=== PATIENT | female | born 1995 | race Caucasian/White ===

== ENCOUNTER 2016-12-16 19:26 | Outpatient (CLI) | payer OTHER ==
[~2016-12-16] VITALS: Ht 162.6 cm; Wt 71.5 kg
[2016-12-16 19:47] VITALS: BP 115/62
[2016-12-17] MEDS ORDERED: fentaNYL INJECTION 100 MCG/2 ML AMP ONE (07:15)
--- NOTE | 2016-12-18 14:03 | Physician Query-Final Dx ---
JUWAN RUANO 12/18/16 1403: Clinic Account Progress/Dx Physician Query: Please give diagnosis Date of Service Dec 16, 2016 at 19:26 MARLEY PIERRE MD 12/19/16 0700: Clinic Account Progress/Dx DIAGNOSIS: Diagnosis 38 week gestation Leaking fluid, negative testing for rupture of membranes JUWAN RUANO Dec 18, 2016 14:03 MARLEY PIERRE MD Dec 19, 2016 07:00
== END 2016-12-16 21:25 | disposition home or self-care (01) ==
LOC: WSo 19:26 → LDRP 19:27 → WSo 21:25
PROVIDERS: ATTEND Family Medicine
DX: O99.89 Other specified diseases and conditions complicating pregnancy, childbirth and the puerperium (principal); N89.8 Other specified noninflammatory disorders of vagina; Z3A.38 38 weeks gestation of pregnancy
CPT/HCPCS: 99214

== ENCOUNTER 2016-12-17 05:15 | Inpatient (IN) | payer OTHER ==
[2016-12-17] VITALS (43 sets, daily range): BP systolic 90–127; BP diastolic 48–70
[~2016-12-17] VITALS: Ht 162.6 cm; Wt 71.5 kg
[2016-12-17] MEDS ORDERED: D5 LR IV SOLUTION 1,000 ML IV ONE (05:34)
[2016-12-17] MEDS ORDERED: AMPICILLIN INJECTION 2,000 MG in NS (IVPB) 50 ML IV SCH (05:41)
[2016-12-17] MEDS ORDERED: D5 LR IV SOLUTION 1,000 ML IV SCH (05:41)
[2016-12-17] MEDS ORDERED: MINERAL OIL CONCENTRATE 99.9% 15 ML UDC TOP PRN (05:45)
[2016-12-17] MEDS ORDERED: AMPICILLIN 2000 MG INJECTION (IM/IV) ONE (05:46)
[2016-12-17] MEDS ORDERED: NS (IVPB) 50 ML ONE (05:47)
[2016-12-17] MEDS ORDERED: CATHETER FLUSH 10 ML SYR IV SCH ×2 (06:00→14:00)
[2016-12-17 06:01] LABS: BASOPHILS % (AUTO) 0 % (0-10); EOSINOPHILS # (AUTO) 0.2 10^3/uL (0.0-0.3); EOSINOPHILS % (AUTO) 2 % (0-10); LYMPHOCYTES # (AUTO) 1.7 X 10^3 (1.0-4.0); LYMPHOCYTES % (AUTO) 18 % (12-44); MEAN CORPUSCULAR HEMOGLOBIN 22 PG (25-34); MEAN CORPUSCULAR HGB CONC 30 G/DL (32-36); MEAN CORPUSCULAR VOLUME 72 FL (80-99); MEAN PLATELET VOLUME 10.2 FL (7.4-10.4); MONOCYTES # (AUTO) 0.8 X 10^3 (0.0-1.0); MONOCYTES % (AUTO) 8 % (0-12); NEUTROPHILS # (AUTO) 6.9 X 10^3 (1.8-7.8); NEUTROPHILS % (AUTO) 72 % (42-75); PLATELET COUNT 223 10^3/uL (130-400); RED BLOOD COUNT 4.41 10^6/uL (4.35-5.85); RED CELL DISTRIBUTION WIDTH 17.2 % (10.0-14.5); WHITE BLOOD COUNT 9.6 10^3/uL (4.3-11.0)
[2016-12-17] MEDS ORDERED: SUFENTA 0.6MCG/ML BUPIVA 0.125 100 ML ONE (06:20)
--- NOTE | 2016-12-17 09:11 | History & Physical-OB ---
OB - Chief Complaint & HPI Date/Time Date of Admission: Date of Admission: Dec 17, 2016 at 5:36 am Time Seen by Provider: 09:05 Chief Complaint/History OB-Reason for Admission/Chief: Onset of Labor Hx : 2 Hx Para: 1 Expected Date of Delivery: Dec 28, 2016 Gestational Age in Weeks: 38 Gestational Age in Days: 3 Other reason for admission: Started having contractions afternoon that were mild, increased in frequency and intensity until overnight last night becoming unbearable. She has had continuous small amount of fluid leaking since which has increased in volume, no gushes. Last night first visit had clearly palpable bag and equivocal nitrazine testing and no cervical change management consultant an hour. On return due to increasingly painful contractions, nitrazine more convincingly positive and bag less noticeable although not clearly ruptured. History of Labs Received care in another city, records not yet received, GBS pending. Allergies and Home Medications Allergies Coded Allergies: No Known Drug Allergies (Unverified , 12/17/16) Home Medications No Active Prescriptions or Reported Meds OB - History Hx of Present Care: Yes Obstetrical Complications: None Medical Complications: None Obstetrical History Hx : 2 Hx Para: 1 Hx Total # of Abortions (Spona: 0 Hx Multiple Gestation: No Hx Ectopic : No Hx Stillbirth: No Hx Complication: No Hx Induced Hypertens: No Hx Maternal Gestational Diabet: No Hx Hemorrhage: No Delivery History Hx Dystocia: No Hx Forceps Assisted Delivery: No Hx Vacuum Extraction Assisted: No Hx Placenta Abnormality: No Hx Distress: No Hx Large For Gestational Age I: No Hx Small for Gestational Age I: No Hx Section: No Hx Vaginal Delivery Post C-Sec: No Hx Blood Disorders: No Adverse Rxn to Tranfusion: No Patient Past Medical History PMHx: Denies Social History/Family History HIV/AIDS: No Recent Infectious Disease Expo: No Sexually Transmitted Disease: No Alcohol Use: Denies Use Recreational Drug Use: No Smoking Cessation: Never smoker Immunizations Rubella: unknown RPR/VDRL: Unknown GBS Status: Unknown HBsAG: Unknown OB - Admission Exam Physical Exam Date Seen by Provider: Dec 17, 2016 Time Seen by Provider: 09:08 Vitals: Vital Signs 12/17/16 12/17/16 07:05 08:30 Temp 98.1 Pulse 81 Resp 18 B/P (MAP) 92/54 Pulse Ox 100 O2 Delivery Non Rebreather O2 Flow Rate 15.00 Abdomen: Gravid Extremities: Normal Cervical Dilatation: 8cm Effacement: 100% Station: 0 Membranes: Intact Heart Rate: 130's Accelerations: No Accelerations Decelerations: Early Decelerations Short Term Variability: Present Halfway Variability: Minimal (3-5) Contractions on Admission: < 5 Minutes Apart Intensity: Firm Labs Laboratory Tests Test 12/17/16 05:45 Range/Units White Blood Count 9.6 4.3-11.0 10^3/uL Red Blood Count 4.41 4.35-5.85 10^6/uL Hemoglobin 9.5 L 11.5-16.0 G/DL Hematocrit 32 L 35-52 % Mean Corpuscular Volume 72 L 80-99 FL Mean Corpuscular Hemoglobin 22 L 25-34 PG Mean Corpuscular Hemoglobin Concent 30 L 32-36 G/DL Red Cell Distribution Width 17.2 H 10.0-14.5 % Platelet Count 223 130-400 10^3/uL Mean Platelet Volume 10.2 7.4-10.4 FL Neutrophils (%) (Auto) 72 42-75 % Lymphocytes (%) (Auto) 18 12-44 % Monocytes (%) (Auto) 8 0-12 % Eosinophils (%) (Auto) 2 0-10 % Basophils (%) (Auto) 0 0-10 % Neutrophils # (Auto) 6.9 1.8-7.8 X 10^3 Lymphocytes # (Auto) 1.7 1.0-4.0 X 10^3 Monocytes # (Auto) 0.8 0.0-1.0 X 10^3 Eosinophils # (Auto) 0.2 0.0-0.3 10^3/uL Basophils # (Auto) 0.0 0.0-0.1 10^3/uL OB - Assessment/Plan/Diagnosis Assessment Assessment: active labor, rupture of membranes (possible prolonged rupture, will treat with ampicillin due to GBS unknown and possible prolonged rupture), other (GBS unknown, Hep B status unknown, HIV status unknown) Plan Plan: Expectant Management Other Plan Will obtain routine labs as records have not yet been received. Copy Copies To 1: MARLEY PIERRE MD, BETHANY N MD Dec 17, 2016 9:11 am
[2016-12-17] MEDS ORDERED: AMPICILLIN INJECTION 1,000 MG in NS (IVPB) 50 ML IV SCH (09:45)
[2016-12-17] MEDS ORDERED: OXYTOCIN/NORMAL SALINE 500 ML IV ONE (09:46)
[2016-12-17] MEDS ORDERED: LIDOCAINE/EPI 1%-1:200,000 (XYLOCAINE) 30 ML VIAL ONE (11:29)
--- NOTE | 2016-12-17 12:37 | OB Labor & Delivery Record ---
Vag Delivery Note Vag Delivery Note Date of Delivery: 12/17/16 Preoperative Diagnosis: Dalila Fontana is a 21 /Para 2 / 1, Gestational Age (wks)38with 3 days Postoperative Diagnosis: Same Surgeon: MARLEY PIERRE Supervisor [employer] Shop: Elen Zarate, MS3 Anesthesia: Epidural Delivery Type: Spontaneous vaginal delivery Findings: Viable female infant, apgars 6/8/9, weight 8#7 Lacerations: left periurethral Intact placenta with 3 vessel cord. No nuchal cord, body cord or shoulder dystocia Estimated Blood Loss: 250 ml Complications: bradycardia immediately prior to delivery, heart rate between 60-80 while infant for 4.5 minutes Condition: Stable Description of Procedure: The patient is a G2 now P2 who presented in active labor. She was admitted and informed consent was obtained. Her labor course was remarkable for bradycardia as noted above. Early decels with contractions at complete dilation. She progressed to complete dilatation and began to push. She was then set up for delivery. The infant's head was delivered atraumatically in the left occiput anterior position. The shoulders and remainder of the infant's body were then delivered without difficulty. Upon delivery, the was placed on maternal abdomen. The gasped and had weak cry, so the cord was doubly clamped and cut and the infant was handed off to the pediatric staff. An intact placenta with 3-vessel cord delivered via Anshul and there was found to be minimal bleeding.~ Vigorous fundal massage was performed and the fundus was found to be firm. IV oxytocin was given. Examination of the vagina and perineum revealed a left periurethral laceration repaired with 2 single interrupted 3-0 rapide. Following the repair, sponge, instrument and needle counts were correct. Mom and baby were both in stable condition in the labor suite. Vitals - Labs Vital Signs - I&O Vital Signs Date Time Temp Pulse Resp B/P (MAP) Pulse Ox O2 Delivery O2 Flow Rate FiO2 12/17/16 10:05 73 18 101/55 100 Non Rebreather 15.00 12/17/16 09:50 93 18 108/54 100 Non Rebreather 15.00 12/17/16 09:35 65 18 96/50 100 Non Rebreather 15.00 12/17/16 09:20 68 18 101/54 99 Non Rebreather 15.00 12/17/16 09:05 63 18 95/52 100 Non Rebreather 15.00 12/17/16 08:50 65 18 98/53 100 Non Rebreather 15.00 12/17/16 08:30 81 18 92/54 100 Non Rebreather 15.00 12/17/16 08:25 77 18 100 Non Rebreather 15.00 12/17/16 08:20 78 18 97/55 100 Non Rebreather 15.00 12/17/16 08:15 71 18 99/52 100 Non Rebreather 15.00 12/17/16 08:10 89 18 97/56 100 Non Rebreather 15.00 12/17/16 08:05 82 18 96/49 100 Non Rebreather 15.00 12/17/16 08:00 70 18 94/52 100 Non Rebreather 15.00 12/17/16 07:55 84 18 94/48 100 Non Rebreather 15.00 12/17/16 07:50 84 18 94/48 100 Non Rebreather 15.00 12/17/16 07:45 85 18 98 Room Air 12/17/16 07:40 81 18 98/50 99 Room Air 12/17/16 07:35 77 18 98/55 98 Room Air 12/17/16 07:30 77 18 102/54 98 Room Air 12/17/16 07:25 74 18 95/55 98 Room Air 12/17/16 07:20 88 18 90/51 99 Room Air 12/17/16 07:15 93 18 99/53 100 Room Air 12/17/16 07:10 88 18 113/56 99 Room Air 12/17/16 07:08 90 18 127/66 100 Room Air 12/17/16 07:05 98.1 85 18 111/56 100 Room Air 12/17/16 05:31 97.6 90 18 117/63 Room Air I & O 12/17/16 07:00 Intake Total 1000 ml Balance 1000 ml Labs Laboratory Tests 12/17/16 05:45: White Blood Count 9.6, Red Blood Count 4.41, Hemoglobin 9.5L, Hematocrit 32L, Mean Corpuscular Volume 72L, Mean Corpuscular Hemoglobin 22L, Mean Corpuscular Hemoglobin Concent 30L, Red Cell Distribution Width 17.2H, Platelet Count 223, Mean Platelet Volume 10.2, Neutrophils (%) (Auto) 72, Lymphocytes (%) (Auto) 18 , Monocytes (%) (Auto) 8, Eosinophils (%) (Auto) 2, Basophils (%) (Auto) 0, Neutrophils # (Auto) 6.9, Lymphocytes # (Auto) 1.7, Monocytes # (Auto) 0.8, Eosinophils # (Auto) 0.2, Basophils # (Auto) 0.0 12/17/16 09:37: MARLEY PIERRE MD Dec 17, 2016 12:37 pm
[2016-12-17] MEDS ORDERED: OXYTOCIN/NORMAL SALINE 500 ML IV SCH (13:58)
[2016-12-17] MEDS ORDERED: TETANUS,DIPTH,PERTUSS P/F (BOOSTRIX) 0.5 ML VIAL IM ONE (14:00)
[2016-12-17] MEDS ORDERED: WITCH HAZEL(TUCKS) 40 EA JAR TOP PRN (14:00)
[2016-12-17] MEDS ORDERED: MEASLES,MUMPS,RUBELLA 1 EA INJ SQ ONE (14:00)
[2016-12-17] MEDS ORDERED: BENZOCAINE/MENTHOL (DERMOPLAST) 56 ML CAN TP PRN (14:00)
[2016-12-17] MEDS: IBUPROFEN 600 MG (MOTRIN) TAB PO SCH ×2 (14:03→20:33)
[2016-12-18] MEDS: IBUPROFEN 600 MG (MOTRIN) TAB PO SCH ×4 (01:57→19:47)
[2016-12-18] MEDS ORDERED: DOCUSATE SODIUM 100 MG (COLACE) CAP PO ONE (04:38)
[2016-12-18] MEDS: DOCUSATE SODIUM 100 MG (COLACE) CAP PO SCH ×2 (04:44→19:47)
[2016-12-18 06:23] LABS: BASOPHILS % (AUTO) 0 % (0-10); EOSINOPHILS # (AUTO) 0.1 10^3/uL (0.0-0.3); EOSINOPHILS % (AUTO) 1 % (0-10); LYMPHOCYTES # (AUTO) 1.6 X 10^3 (1.0-4.0); LYMPHOCYTES % (AUTO) 16 % (12-44); MEAN CORPUSCULAR HEMOGLOBIN 22 PG (25-34); MEAN CORPUSCULAR HGB CONC 30 G/DL (32-36); MEAN CORPUSCULAR VOLUME 73 FL (80-99); MEAN PLATELET VOLUME 9.6 FL (7.4-10.4); MONOCYTES # (AUTO) 0.7 X 10^3 (0.0-1.0); MONOCYTES % (AUTO) 7 % (0-12); NEUTROPHILS # (AUTO) 7.9 X 10^3 (1.8-7.8); NEUTROPHILS % (AUTO) 76 % (42-75); PLATELET COUNT 169 10^3/uL (130-400); RED BLOOD COUNT 3.62 10^6/uL (4.35-5.85); WHITE BLOOD COUNT 10.4 10^3/uL (4.3-11.0)
--- NOTE | 2016-12-18 07:49 | Anesthesia-Regional Post-Op ---
Regional Patient Condition Mental Status: Alert, Oriented x3 Circulation: Same as Pre-Op Headache: Absent Sensation: Full Recovery Motor Block: Absent Post Op Complications Complications None Follow Up Care/Instructions Patient Instructions None needed. Anesthesia/Patient Condition Patient is doing well, C/O minimal sore back (which is expected), stable vital signs, no apparent adverse anesthesia problems. MUSA ORTA DO Dec 18, 2016 07:49
[2016-12-18] MEDS: PRENATAL VITAMIN 1 EA TAB PO SCH (07:53)
[2016-12-18] MEDS: FERROUS SULF 325 MG (IRON) TAB PO SCH (07:53)
[2016-12-18 08:00] VITALS: BP 91/49
--- NOTE | 2016-12-18 09:58 | Progress Note (SOAP) ---
Subjective Subjective/Events-last exam No concerns today. Bleeding less then normal period, no clots. Pain well controlled. Tolerating PO diet and ambulation Review of Systems Date Seen by Provider: Dec 18, 2016 Time Seen by Provider: 09:47 Objective Exam Last Set of Vital Signs Vital Signs Date Time Temp Pulse Resp B/P (MAP) Pulse Ox O2 Delivery O2 Flow Rate FiO2 12/18/16 08:00 97.1 92 18 91/49 100 Room Air 12/17/16 11:35 15.00 Capillary Refill : I&O Bad tableGeneral: Alert, Oriented X3, No Acute Distress Lungs: Clear to Auscultation, Normal Air Movement Heart: Regular Rate, No Murmurs Abdomen: Soft, No Tenderness, Other (Fundus firm below umbilicus) Extremities: No Edema, No Tenderness/Swelling Psych/Mental Status: Mental Status NL, Mood NL Results/Procedures Lab Laboratory Tests 12/18/16 06:04: White Blood Count 10.4, Red Blood Count 3.62L, Hemoglobin 7.9L, Hematocrit 27L, Mean Corpuscular Volume 73L, Mean Corpuscular Hemoglobin 22L, Mean Corpuscular Hemoglobin Concent 30L, Red Cell Distribution Width 17.0H, Platelet Count 169, Mean Platelet Volume 9.6, Neutrophils (%) (Auto) 76H, Lymphocytes (%) (Auto) 16 , Monocytes (%) (Auto) 7, Eosinophils (%) (Auto) 1, Basophils (%) (Auto) 0, Neutrophils # (Auto) 7.9H, Lymphocytes # (Auto) 1.6, Monocytes # (Auto) 0.7, Eosinophils # (Auto) 0.1, Basophils # (Auto) 0.0 Assessment/Plan Assessment/Plan Plan 21 yo G2 now P2 del term female infant via @ 38.3 wga, PPD #1 Plan - Continue routine care - Acute blood loss anemia after delivery: PNV and daily Iron supplement - Pain well controlled on PO meds - Plan to d/c tomorrow Diagnosis/Problems: Clinical Quality Measures DVT/VTE Risk/Contraindication: Risk Factor Score Per Nursin RFS Level Per Nursing on Admit: 1=Low/No VTE PPX NAT SHAH MD Dec 18, 2016 09:58
[2016-12-18 12:00] VITALS: BP 102/58
[2016-12-18 13:59] LABS: HIV AG AB SCREEN Non-Reactive (Non-Reactive)
[2016-12-18 15:52] LABS: SYPHILIS SCREEN PT Non-Reactive
[2016-12-18 16:07] LABS: RUBELLA ANTIBOD 0.99 H INDEX (0.00-0.89)
[2016-12-18 16:09] LABS: RUBELLA ANTIBODY INTERP Equivocal * (NEGATIVE)
[2016-12-18 16:15] VITALS: BP 98/61
[2016-12-18 20:00] VITALS: BP 105/64
[2016-12-19 02:45] VITALS: BP 99/58
[2016-12-19] MEDS: IBUPROFEN 600 MG (MOTRIN) TAB PO SCH ×2 (02:48→09:13)
[2016-12-19] MEDS ORDERED: PNV1TABL67 PO ×2 (06:53)
[2016-12-19] MEDS ORDERED: FERR-74 PO ×2 (06:53)
[2016-12-19] MEDS ORDERED: IBUP-1773 PO ×2 (06:53)
[2016-12-19 08:45] VITALS: BP 100/59
[2016-12-19] MEDS: DOCUSATE SODIUM 100 MG (COLACE) CAP PO SCH (09:13)
[2016-12-19] MEDS: FERROUS SULF 325 MG (IRON) TAB PO SCH (09:13)
[2016-12-19] MEDS: PRENATAL VITAMIN 1 EA TAB PO SCH (09:13)
--- NOTE | 2016-12-19 09:18 | Discharge Summary ---
Diagnosis/Chief Complaint Date of Admission Dec 17, 2016 at 5:36 am Date of Discharge Discharge Summary-Simple/Stand Discharge Physical Examination Allergies: Coded Allergies: No Known Drug Allergies (Unverified , 12/17/16) Vitals & I&Os Vital Sign - Last 12Hours Date Time Temp Pulse Resp B/P (MAP) Pulse Ox O2 Delivery O2 Flow Rate FiO2 12/19/16 02:45 98.2 89 18 99/58 98 Room Air 12/17/16 11:35 15.00 Hospital Course See final discharge diagnosis. Discharge Instructions to patient/family Please see electonic discharge instructions given to patient. Discharge Medications Reviewed and agree with Discharge Medication list on patient's Discharge Instruction sheet Clinical Quality Measures DVT/VTE Risk/Contraindication: Risk Factor Score Per Nursin RFS Level Per Nursing on Admit: 1=Low/No VTE PPX MARLEY PIERRE MD Dec 19, 2016 9:18 am
[2016-12-19 13:00] VITALS: BP 101/59
[2016-12-19 14:55] VITALS: BP 101/59
== END 2016-12-19 14:55 | disposition home or self-care (01) | DRG 775 ==
LOC: WSo 05:15 → LDRP 05:15 → WSo 05:36 → LDRP 05:36
PROVIDERS: ADMIT Family Medicine; ATTEND Family Medicine
PROC: 0HQ9XZZ Repair Perineum Skin, External Approach (ICD-10-PCS; principal; 2016-12-17)
PROC: 10E0XZZ Delivery of Products of Conception, External Approach (ICD-10-PCS; 2016-12-17)
DX: O71.82 Other specified trauma to perineum and vulva (principal); Z3A.38 38 weeks gestation of pregnancy; Z37.0 Single live birth; O90.81 Anemia of the puerperium; D62 Acute posthemorrhagic anemia
CPT/HCPCS: 36415; 85025; 86703; 86762; 86780; 86850; 86900; 86901; 87340; 99212

== ENCOUNTER 2020-02-18 09:09 | Day surgery (SDC) | payer MEDICAID ==
[~2020-02-18] VITALS: Ht 162 cm; Wt 77.0 kg
[2020-02-18] VITALS (9 sets, daily range): BP systolic 103–123; BP diastolic 66–77
[~2020-02-18 09:09] MED LIST: FERR325T18 PO; IBUP-1773 PO; PNV1TABL67 PO
[2020-02-18 11:17] LABS: BASOPHILS % (AUTO) 0 % (0-10); EOSINOPHILS % (AUTO) 0 % (0-10); HEMATOCRIT 41 % (35-52); HEMOGLOBIN 14.3 G/DL (11.5-16.0); LYMPHOCYTES # (AUTO) 1.2 X 10^3 (1.0-4.0); LYMPHOCYTES % (AUTO) 8 % (12-44); MEAN CORPUSCULAR HEMOGLOBIN 30 PG (25-34); MEAN CORPUSCULAR HGB CONC 35 G/DL (32-36); MEAN CORPUSCULAR VOLUME 86 FL (80-99); MEAN PLATELET VOLUME 10.4 FL (7.4-10.4); MONOCYTES % (AUTO) 6 % (0-12); NEUTROPHILS # (AUTO) 12.9 X 10^3 (1.8-7.8); NEUTROPHILS % (AUTO) 86 % (42-75); PLATELET COUNT 263 10^3/uL (130-400)
[2020-02-18 11:27] LABS: ALANINE AMINOTRANSFERASE 19 U/L (0-55); ALBUMIN 4.5 GM/DL (3.2-4.5); ALKALINE PHOSPHATASE 56 U/L (40-136); AMYLASE 67 U/L (25-125); BILIRUBIN,TOTAL 0.6 MG/DL (0.1-1.0); BUN/CREATININE RATIO 13; CALCIUM 9.2 MG/DL (8.5-10.1); CARBON DIOXIDE 21 MMOL/L (21-32); CHLORIDE 103 MMOL/L (98-107); CREATININE SERUM 0.68 MG/DL (0.60-1.30); GFR ESTIMATED > 60; GLUCOSE 121 MG/DL (70-105); LIPASE 15 U/L (8-78); POTASSIUM 3.4 MMOL/L (3.6-5.0); SODIUM 137 MMOL/L (135-145); TOTAL PROTEIN 7.7 GM/DL (6.4-8.2)
[2020-02-18 11:43] LABS: BILIRUBIN,URINE NEGATIVE (NEGATIVE); CLARITY,URINE CLEAR; COLOR,URINE YELLOW; GLUCOSE, URINE (UA) NEGATIVE (NEGATIVE); KETONES,URINE 2+ (NEGATIVE); LEUKOCYTE ESTERASE ,URINE NEGATIVE (NEGATIVE); NITRITE,URINE NEGATIVE (NEGATIVE); PROTEIN,URINE NEGATIVE (NEGATIVE)
[2020-02-18 11:49] LABS: WBC,URINE 0-2 /HPF
[2020-02-18 11:50] LABS: BACTERIA,URINE TRACE /HPF
--- NOTE | 2020-02-18 12:04 | ED Abdominal Pain ---
General Chief Complaint: Abdominal/GI Problems Stated Complaint: ABD CRAMPING Nursing Triage Note: pt presents to ed with complaints of abdominal pain starting yesterday with n/v. Sepsis Screen: No Definite Risk Source of Information: Patient Exam Limitations: No Limitations History of Present Illness Date Seen by Provider: Feb 18, 2020 Time Seen by Provider: 11:05 Initial Comments 24-year-old female who presents to emergency room with complaints of abdominal pain, nausea, vomiting that started yesterday. She denies any fevers or diarrhea. He reports the pain is in her right lower quadrant area. She believed that she was going to start her menstrual cycle a week early but no menses came with the pain. Timing/Duration: 1-2 Days Associated Symptoms: Nausea/Vomiting Allergies and Home Medications Allergies Coded Allergies: No Known Drug Allergies (Unverified , 12/17/16) Home Medications Ferrous Sulfate 325 Mg Tablet, 325 MG PO DAILY@0800 Prescribed by: MARLEY PIERRE on 12/19/16 0653 Ibuprofen 600 Mg Tablet, 600 MG PO Q6H PRN for PAIN-MILD TO MODERATE Prescribed by: MARLEY PIERRE on 12/19/16 0653 Pnv with Ca,No.72/Iron/FA 1 Each Tablet, 1 EA PO DAILY@0700 Prescribed by: MARLEY PIERRE on 12/19/16 0653 Patient Home Medication List Home Medication List Reviewed: Yes Review of Systems Review of Systems Constitutional: see HPI; No chills, No fever Gastrointestinal: See HPI, Abdominal Pain, Nausea, Vomiting All Other Systems Reviewed Negative Unless Noted: Yes Past [id number]-[id number]-Mxombj Hx Past Med/Social Hx: Reviewed Nursing Past Med/Soc Hx Patient Social History Alcohol Use: Rarely Uses Recreational Drug Use: No Smoking Status: Former Smoker Type Used: Cigarettes Former Smoker, Quit: October 21, 2019 Recent Foreign Travel: No Contact w/Someone Who Travel: No Recent Infectious Disease Expo: No Recent Hopitalizations: No Immunizations Up To Date Tetanus Booster (TDap): Unknown Seasonal Allergies Seasonal Allergies: No Past Medical History Surgeries: Yes Tubal Ligation Respiratory: No Cardiac: No Neurological: No Sexually Transmitted Disease: No HIV/AIDS: No Genitourinary: No Gastrointestinal: No Musculoskeletal: No Endocrine: No HEENT: No Cancer: No Psychosocial: No Integumentary: No Blood Disorders: No Adverse Reaction/Blood Tranf: No Family Medical History Reviewed Nursing Family Hx Patient reports no known family medical history. Physical Exam Vital Signs Vital Signs - First Documented 02/18/20 09:28 Temp 36.6 Pulse 83 Resp 18 B/P (MAP) 113/75 (88) Pulse Ox 99 Capillary Refill : Less Than 3 Seconds Height/Weight/BMI Height: 5'4.00" Weight: 157lbs. 10.0oz. [id number]; 29.00 BMI Method: General Appearance: WD/WN, no apparent distress Respiratory: chest non-tender, lungs clear, normal breath sounds, no respiratory distress, no accessory muscle use Cardiovascular: normal peripheral pulses, regular rate, rhythm, no edema, no gallop, no JVD, no murmur Gastrointestinal: normal bowel sounds, soft, no organomegaly, no pulsatile mass, tenderness (right lower quadrant tenderness) Extremities: normal capillary refill Neurologic/Psychiatric: alert, normal mood/affect, oriented x 3 Skin: normal color, warm/dry Progress/Results/Core Measures Results/Orders Lab Results Laboratory Tests Test 02/18/20 10:00 02/18/20 11:35 Range/Units White Blood Count 15.0 H 4.3-11.0 10^3/uL Red Blood Count 4.78 4.35-5.85 10^6/uL Hemoglobin 14.3 11.5-16.0 G/DL Hematocrit 41 35-52 % Mean Corpuscular Volume 86 80-99 FL Mean Corpuscular Hemoglobin 30 25-34 PG Mean Corpuscular Hemoglobin Concent 35 32-36 G/DL Red Cell Distribution Width 13.5 10.0-14.5 % Platelet Count 263 130-400 10^3/uL Mean Platelet Volume 10.4 7.4-10.4 FL Neutrophils (%) (Auto) 86 H 42-75 % Lymphocytes (%) (Auto) 8 L 12-44 % Monocytes (%) (Auto) 6 0-12 % Eosinophils (%) (Auto) 0 0-10 % Basophils (%) (Auto) 0 0-10 % Neutrophils # (Auto) 12.9 H 1.8-7.8 X 10^3 Lymphocytes # (Auto) 1.2 1.0-4.0 X 10^3 Monocytes # (Auto) 1.0 0.0-1.0 X 10^3 Eosinophils # (Auto) 0.0 0.0-0.3 10^3/uL Basophils # (Auto) 0.0 0.0-0.1 10^3/uL Sodium Level 137 135-145 MMOL/L Potassium Level 3.4 L 3.6-5.0 MMOL/L Chloride Level 103 98-107 MMOL/L Carbon Dioxide Level 21 21-32 MMOL/L Anion Gap 13 5-14 MMOL/L Blood Urea Nitrogen 9 7-18 MG/DL Creatinine 0.68 0.60-1.30 MG/DL Estimat Glomerular Filtration Rate > 60 BUN/Creatinine Ratio 13 Glucose Level 121 H 70-105 MG/DL Calcium Level 9.2 8.5-10.1 MG/DL Corrected Calcium 8.8 8.5-10.1 MG/DL Total Bilirubin 0.6 0.1-1.0 MG/DL Aspartate Amino Transf (AST/SGOT) 16 5-34 U/L Alanine Aminotransferase (ALT/SGPT) 19 0-55 U/L Alkaline Phosphatase 56 40-136 U/L Total Protein 7.7 6.4-8.2 GM/DL Albumin 4.5 3.2-4.5 GM/DL Amylase Level 67 25-125 U/L Lipase 15 8-78 U/L Serum Test, Qualitative NEGATIVE NEGATIVE Urine Color YELLOW Urine Clarity CLEAR Urine pH 6.0 5-9 Urine Specific [place] 1.010 L 1.016-1.022 Urine Protein NEGATIVE NEGATIVE Urine Glucose (UA) NEGATIVE NEGATIVE Urine Ketones 2+ H NEGATIVE Urine Nitrite NEGATIVE NEGATIVE Urine Bilirubin NEGATIVE NEGATIVE Urine Urobilinogen 0.2 < = 1.0 MG/DL Urine Leukocyte Esterase NEGATIVE NEGATIVE Urine RBC (Auto) NEGATIVE NEGATIVE Urine RBC NONE /HPF Urine WBC 0-2 /HPF Urine Squamous Epithelial Cells 2-5 /HPF Urine Crystals NONE /LPF Urine Bacteria TRACE /HPF Urine Casts NONE /LPF Urine Mucus NEGATIVE /LPF Urine Culture Indicated NO My Orders Orders - FRANCOIS HICKS Comprehensive Metabolic Panel (02/18/20 11:04) Lipase (02/18/20 11:04) Amylase (02/18/20 11:04) Ua Culture If Indicated (02/18/20 11:04) Hcg,Qualitative Serum (02/18/20 11:04) Ed Iv/Invasive Line Start (02/18/20 11:04) Cbc With Automated Diff (02/18/20 11:04) Manual Differential (02/18/20 10:00) Ct Abdomen/Pelvis W (02/18/20 11:53) Iohexol Injection (Omnipaque 350 Mg/Ml 1 (02/18/20 12:15) Received Contrast (Hold Metformin- Contr (02/18/20 12:15) Ns (Ivpb) (Sodium Chloride 0.9% Ivpb Bag (02/18/20 12:15) Fentanyl Injection (Sublimaze Injection (02/18/20 13:00) Ondansetron Injection (Zofran Injectio (02/18/20 13:00) Ns Iv 1000 Ml (Sodium Chloride 0.9%) (02/18/20 13:00) Medications Given in ED Current Medications Medications Dose Ordered Sig/Chase Route Start Time Stop Time Status Last Admin Dose Admin Iohexol 100 ml ONCE ONCE IV 02/18/20 12:15 02/18/20 12:16 DC 02/18/20 12:03 92 ML Sodium Chloride 100 ml ONCE ONCE IV 02/18/20 12:15 02/18/20 12:16 DC 02/18/20 12:03 80 ML Vital Signs/I&O 02/18/20 09:28 Temp 36.6 Pulse 83 Resp 18 B/P (MAP) 113/75 (88) Pulse Ox 99 Blood Pressure Mean: 88 Progress Progress Note : Time: 12:40 Progress Note I have seen and evaluated the patient. I've informed her of her laboratory and imaging studies. I did discuss the case with Dr. Reyes at this time he will be down to evaluate the patient. 1250: Dr. Reyes is here to see the patient at this time. Departure Communication (Admissions) Time/Spoke to Admitting Phy: 15:55 Dr. Reyes will be taking the patient to a wall from the ER. Impression Primary Impression: Appendicitis Disposition: 01 HOME, SELF-CARE Condition: Stable/Unchanged Admissions Decision to Admit Reason: Admit from ER (General) Decision to Admit/Date: Feb 18, 2020 Time/Decision to Admit Time: 12:58 FRANCOIS HICKS Feb 18, 2020 12:04
[2020-02-18] MEDS ORDERED: HOLD METFORMIN - RECEIVED CONTRAST 20 ML VIAL IV SCH (12:15)
[2020-02-18] MEDS ORDERED: IOHEXOL 350 MG/ML 100 ML (OMNIPAQUE 350) VIAL IV ONE (12:15)
[2020-02-18] MEDS ORDERED: NS 100 ML (IVPB) BAG IV ONE (12:15)
--- NOTE | 2020-02-18 12:23 | Diagnostic Imaging Report ---
PROCEDURE: CT abdomen and pelvis with contrast. TECHNIQUE: Multiple contiguous axial images were obtained through the abdomen and pelvis after administration of intravenous contrast. Auto Exposure Controls were utilized during the CT exam to meet ALARA standards for radiation dose reduction. INDICATION: Right flank pain with nausea, vomiting, and diarrhea. COMPARISON: No prior studies are available for comparison. FINDINGS: The lung bases are clear. The liver and gallbladder are unremarkable. No biliary ductal dilatation is seen. The pancreas and spleen are unremarkable. No adrenal mass is detected. Kidneys are without evidence of hydronephrosis. Aorta is nonaneurysmal. There is wall thickening and dilatation of the appendix in the right lower quadrant. Periappendiceal inflammatory changes are present and findings are consistent with acute appendicitis. There is a small calcific density within the appendix, suggestive of a small appendicolith. No definite bowel obstruction is seen. No fluid collection or abscess formation is seen at this time. There is no free air. Uterus and bladder are unremarkable. IMPRESSION: Findings consistent with acute appendicitis. No abscess formation or bowel obstruction is seen at this time. Dictated by: Dictated on workstation # [id number]
[2020-02-18] MEDS ORDERED: SEVOFLURANE (ULTANE) 15 ML INHAL SOLN ONE (12:59)
[2020-02-18] MEDS ORDERED: GLYCOPYRROLATE 0.2 MG/ML (ROBINUL) 2 ML VIAL ONE (12:59)
[2020-02-18] MEDS ORDERED: proPOfol 200 MG/20 ML (DIPRIVAN) VIAL IV ONE (12:59)
[2020-02-18] MEDS ORDERED: ROCURONIUM 10 MG/ML 5 ML SYRINGE IV ONE (12:59)
[2020-02-18] MEDS ORDERED: ONDANSETRON 4 MG/2 ML (SDV) Z0FRAN ONE (12:59)
[2020-02-18] MEDS ORDERED: NEOSTIGMINE 3 MG/3 ML VIAL ONE (12:59)
[2020-02-18] MEDS ORDERED: LIDOCAINE PF 2% 5 ML (XYLOCAINE) VIAL ONE (12:59)
[2020-02-18] MEDS ORDERED: fentaNYL INJECTION 100 MCG/2 ML AMP ONE (12:59)
[2020-02-18] MEDS ORDERED: fentaNYL INJECTION 100 MCG/2 ML AMP IVP ONE (13:00)
[2020-02-18] MEDS ORDERED: ONDANSETRON 4 MG/2 ML (SDV) Z0FRAN IVP ONE (13:00)
[2020-02-18] MEDS ORDERED: NS IV 1000 ML 1,000 ML IV SCH (13:00)
[2020-02-18] MEDS ORDERED: MIDAZOLAM 2 MG/2 ML (VERSED) VIAL ONE (13:00)
[2020-02-18] MEDS ORDERED: BUP/EPI 0.25% 1:200,000 (MARCAINE) 30 ML VIAL ONE (13:00)
--- NOTE | 2020-02-18 13:05 | Consultation - Surgery ---
History of Present Illness History of Present Illness Patient Consulted On(timothy/time) 02/18/20 12:59 Time Seen by Provider: 12:41 History of Present Illness Surgery asked to consult regarding appendicitis. HPI per ED: 24-year-old female who presents to emergency room with complaints of abdominal pain, nausea, vomiting that started yesterday. She denies any fevers or diarrhea. He reports the pain is in her right lower quadrant area. She believed that she was going to start her menstrual cycle a week early but no menses came with the pain. Timing/Duration: 1-2 Days Associated Symptoms: Nausea/Vomiting When I spoke to pt she described pain as 10 out of 10, no radiation. Started yesterday as cramps in the middle of the abdomen and now is more on the right s gabino. Not moving makes it better and only the pain meds help with the pain. She hasn't eaten since 02/15 because she has no appetite. She describes "lots" of vomiting with nausea and some minimal diarrhea. Allergies and Home Medications Allergies Coded Allergies: No Known Drug Allergies (Unverified , 12/17/16) Home Medications Ferrous Sulfate 325 Mg Tablet, 325 MG PO DAILY@0800 Prescribed by: MARLEY PIERRE on 12/19/16 0653 Ibuprofen 600 Mg Tablet, 600 MG PO Q6H PRN for PAIN-MILD TO MODERATE Prescribed by: MARLEY PIERRE on 12/19/16 0653 Pnv with Ca,No.72/Iron/FA 1 Each Tablet, 1 EA PO DAILY@0700 Prescribed by: MARLEY PIERRE on 12/19/16 0653 Patient Home Medication List Home Medication List Reviewed: Yes Past Zfrcozs-Iwhsyl-Xktnhy Hx Patient Social History Alcohol Use: Rarely Uses Recreational Drug Use: No Smoking Status: Former Smoker Former Smoker, Quit: October 21, 2019 Type Used: Cigarettes Recent Foreign Travel: No Contact w/Someone Who Travel: No Recent Infectious Disease Expo: No Recent Hopitalizations: No Immunizations Up To Date Tetanus Booster (TDap): Unknown Seasonal Allergies Seasonal Allergies: No Surgeries History of Surgeries: Yes Surgeries: Tubal Ligation Respiratory History of Respiratory Disorde: No Cardiovascular History of Cardiac Disorders: No Neurological History of Neurological Disord: No Reproductive System Sexually Transmitted Disease: No HIV/AIDS: No Genitourinary History of Genitourinary Disor: No Gastrointestinal History of Gastrointestinal Di: No Musculoskeletal History of Musculoskeletal Dis: No Endocrine History of Endocrine Disorders: No HEENT History of HEENT Disorders: No Cancer History of Cancer: No Psychosocial History of Psychiatric Problem: No Integumentary History of Skin or Integumenta: No Blood Transfusions History of Blood Disorders: No Adverse Reaction to a Blood Tr: No Family Medical History Significant Family History: Cancer (mother), Other Conditions/Hx (doesn't know anything about father) Family Medial History: Patient reports no known family medical history. Review of Systems-General Constitutional: malaise, weakness EENTM: No blurred vision, No double vision, No mouth pain, No mouth swelling, No epistaxis Respiratory: No cough, No dyspnea on exertion, No short of breath Cardiovascular: No chest pain, No edema, No palpitations Gastrointestinal: RLQ, abdominal pain (RUQ), diarrhea; No jaundice; nausea, vomiting Genitourinary: No dysuria, No frequency, No hematuria Musculoskeletal: No joint pain, No joint swelling, No muscle pain, No muscle stiffness Skin: No change in color, No change in hair/nails Psychiatric/Neurological: Denies Anxiety, Denies Depressed, Denies Seizure, Denies Tremors Other pt denies any hx of abnormal bleeding or bruising Physical Exam-General Problems Physical Exam Vital Signs Vital Signs - First Documented 02/18/20 09:28 Temp 36.6 Pulse 83 Resp 18 B/P (MAP) 113/75 (88) Pulse Ox 99 Capillary Refill : Less Than 3 Seconds General Appearance: WD/WN, mild distress Eyes: Bilateral Eye PERRL, Bilateral Eye EOMI HEENT: pharynx normal; No scleral icterus (R), No scleral icterus (L) Neck: full range of motion, supple Respiratory: chest non-tender, lungs clear, normal breath sounds, no respiratory distress, no accessory muscle use Cardiovascular: regular rate, rhythm, no murmur Gastrointestinal: normal bowel sounds, no organomegaly, guarding, tenderness Back: no CVA tenderness, no vertebral tenderness Extremities: non-tender, normal inspection, no pedal edema, no calf tenderness, normal capillary refill 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, no motor/sensory deficits, alert, normal mood/affect, oriented x 3 Skin: normal color, warm/dry Lymphatic: no adenopathy (neck, axilla or groin) Data Review Labs Laboratory Tests 02/18/20 10:00: White Blood Count 15.0H, Red Blood Count 4.78, Hemoglobin 14.3, Hematocrit 41, Mean Corpuscular Volume 86, Mean Corpuscular Hemoglobin 30, Mean Corpuscular Hemoglobin Concent 35, Red Cell Distribution Width 13.5, Platelet Count 263, Mean Platelet Volume 10.4, Neutrophils (%) (Auto) 86H, Lymphocytes (%) (Auto) 8L , Monocytes (%) (Auto) 6, Eosinophils (%) (Auto) 0, Basophils (%) (Auto) 0, Neutrophils # (Auto) 12.9H, Lymphocytes # (Auto) 1.2, Monocytes # (Auto) 1.0, Eosinophils # (Auto) 0.0, Basophils # (Auto) 0.0, Sodium Level 137, Potassium Level 3.4L, Chloride Level 103, Carbon Dioxide Level 21, Anion Gap 13, Blood Urea Nitrogen 9, Creatinine 0.68, Estimat Glomerular Filtration Rate > 60, BUN/Creatinine Ratio 13, Glucose Level 121H, Calcium Level 9.2, Corrected Calcium 8.8, Total Bilirubin 0.6, Aspartate Amino Transf (AST/SGOT) 16, Alanine Aminotransferase (ALT/SGPT) 19, Alkaline Phosphatase 56, Total Protein 7.7, Albumin 4.5, Amylase Level 67, Lipase 15, Serum Test, Qualitative NEGATIVE 02/18/20 11:35: Urine Color YELLOW, Urine Clarity CLEAR, Urine pH 6.0, Urine Specific [place] 1.010L, Urine Protein NEGATIVE, Urine Glucose (UA) NEGATIVE, Urine Ketones 2+H, Urine Nitrite NEGATIVE, Urine Bilirubin NEGATIVE, Urine Urobilinogen 0.2, Urine Leukocyte Esterase NEGATIVE, Urine RBC (Auto) NEGATIVE, Urine RBC NONE, Urine WBC 0-2, Urine Squamous Epithelial Cells 2-5, Urine Crystals NONE, Urine Bacteria TRACE, Urine Casts NONE, Urine Mucus NEGATIVE, Urine Culture Indicated NO Radiology Date of Exam:02/18/20 CT ABDOMEN/PELVIS W PROCEDURE: CT abdomen and pelvis with contrast. TECHNIQUE: Multiple contiguous axial images were obtained through the abdomen and pelvis after administration of intravenous contrast. Auto Exposure Controls were utilized during the CT exam to meet ALARA standards for radiation dose reduction. INDICATION: Right flank pain with nausea, vomiting, and diarrhea. COMPARISON: No prior studies are available for comparison. FINDINGS: The lung bases are clear. The liver and gallbladder are unremarkable. No biliary ductal dilatation is seen. The pancreas and spleen are unremarkable. No adrenal mass is detected. Kidneys are without evidence of hydronephrosis. Aorta is nonaneurysmal. There is wall thickening and dilatation of the appendix in the right lower quadrant. Periappendiceal inflammatory changes are present and findings are consistent with acute appendicitis. There is a small calcific density within the appendix, suggestive of a small appendicolith. No definite bowel obstruction is seen. No fluid collection or abscess formation is seen at this time. There is no free air. Uterus and bladder are unremarkable. IMPRESSION: Findings consistent with acute appendicitis. No abscess formation or bowel obstruction is seen at this time. Dictated on workstation # [id number] Dict: 02/18/20 1217 Trans: 02/18/20 1222 [id number] [id number] Interpreted by: ESE TORRES MD Electronically signed by: Assessment/Plan Assessment/Plan Assessment/Plan Acute appendicitis I reviewed the CT myself and spoke to radiologist her appendix is very inflamed and enlarged. Plan is IV fluids, IV ABX, pain meds, anti-emetics and to OR for Laparoscopic Appendectomy, possible open. I discussed the procedure with pt; risks and complications not limited to pain, bleeding, infection, scar, damage to bowel and need for further procedure. All questions answered to her satisfaction. CEDRIC DALEY DO Feb 18, 2020 13:05
[2020-02-18] MEDS ORDERED: ceFAZolin 2 GM IV Premixed 50 ML IV ONE (13:15)
[2020-02-18 13:32] LABS: BAND NEUTROPHILS 6 %; LYMPHOCYTES % (MANUAL) 10 %; MONOCYTES % (MANUAL) 3 %; NEUTROPHILS % (MANUAL) 81 %; RBC MORPH NORMAL
[2020-02-18] MEDS ORDERED: LACTATED RINGERS 1,000 ML IV PRN (13:54)
[2020-02-18] MEDS ORDERED: HYDR-4226 PO (14:31)
--- NOTE | 2020-02-18 14:31 | Progress Note-Post Operative ---
Post-Operative Progess Note Surgeon (s)/On Car Supervisor (s) Surgeon CEDRIC DALEY DO On Car Supervisor: MICHELE Osman Pre-Operative Diagnosis Acute appy Post-Operative Diagnosis same Procedure & Operative Findings Date of Procedure 02/18/20 Procedure Performed/Findings PROCEDURE: Laparoscopic appendectomy. COMPLICATIONS: None. INDICATIONS: The patient is a 24 year old female who has been having right lower quadrant abdominal pain. Patient's exam consistent with appendicitis. I discussed risk and benefits of laparoscopic appendectomy and all indicated procedures with the possibility being a normal appendix. The patient understands the risks and benefits and wishes to proceed. Consent was signed on the chart. DESCRIPTION OF PROCEDURE: The patient was taken to the operating suite, prepped and draped in a sterile fashion. Timeout was performed. Local anesthetic was infiltrated just above the umbilicus and 11-blade scalpel was used to make a skin incision. Cautery was used to dissect down to the fascia and scored. Kochers were used to grasp and elevate it and the abdomen was then entered. A 0 Vicryl was placed in a pvcwnf-vw-ajwen fashion for closure at the end of the case. The balloon trocar was inserted into the abdomen and pneumoperitoneum was achieved. Under direct visualization of the laparoscope, a 5 mm trocar was placed in the suprapubic region and a 5 mm trocar was placed in the left lower quadrant. Appendix was located, behind the cecum it was very enlarged and almost looked necrotic. The base of the appendix was dissected around with blunt dissection and the ligasure. Once at the base an Endo-MONA 2.5 stapler was then fired across the base of the appendix. The mesoappendix was then divided. It was then placed in an Endobag and removed through the 12 mm trocar site. The abdomen was then irrigated and suctioned. No other pathology noted. The abdomen was then desufflated and the trocars were removed. The 0 Vicryl placed at the beginning of the case was then tied closing the 12 mm fascial defect. The skin was then closed using 4-0 Monocryl in a subcuticular fashion. The abdomen was then washed and dried and Skin Affix was placed over the incisions. The patient tolerated the procedure well without any complications and was taken to the recovery room in stable condition. Anesthesia Type GET Estimated Blood Loss Estimated blood loss (mL): scant Specimens/Packing Specimens Removed CEDRIC Rosa DO Feb 18, 2020 14:31
--- NOTE | 2020-02-18 14:32 | Discharge Inst-Surgical ---
Discharge Inst-Surgical Depart Medication/Instructions New, Converted or Re-Newed RX: RX Given to Pt/Family Patient Instructions Follow up Appt: Make appointment for 1 week. [phone] Instructions: No lifting greater than 20 pounds. No strenuous activity. May shower in 24 hours, no tub bath or soaking. Use incentive spirometer at home as directed. No Smoking Skin/Wound Care: May remove bandages in am. You need to leave the Dermabond on incision it will fall off on it's own. Symptoms to Report: Appetite Changes, Extremity Discoloration, Numbness/Tingling, Swelling Increased, Bleeding Excessive, Eyesight Changes, Pain Increased, Urine Color Change, Constipation(Persistent), Fever over 101 degree F, Pain/Pressure in chest, Urinating Difficulty, Cough Up/Vomit Blood, Heart Beat Irreg/Pounding, Pain/Pressure in jaw, Cramps in feet or legs, Lightheadedness, Pain/Pressure in shoulder, Diarrhea(Persistent), Memory Changes Suddenly, Questions/Concerns, Weight gain consecutive days, Dizziness/Fainting, Nausea/Vomiting, Shortness of Breath, Weight gain over 2 pounds If questions or concerns contact your physician Or seek help at emergency department. Activity Activity as Tolerated: Yes Activity Instructions: Avoid Stress to Incision Driving Instructions: No Driving/Refer to Dr. Jones Discharge Diet: No Restrictions Diet After 24 Hours: Clear Liquid if Nauseous If Any Problems/Questions/Issu: Contact Your Physician, Go to Emergency Room Skin/Wound Care Infection Signs and Symptoms: Increased Redness, Foul Odor of Wound, Increased Drainage, Skin Itchy or Has a Rash, Increased Swelling, Temperature Above 101 F Wound Care Comment: heating pad to shoulder or neck tonight for pain Bathing Instructions: Shower Stitches/Tulio/Dermabond Dis: Dermabond Ice Pack: Ice On and Off Site (as needed for pain at incision sites) CEDRIC DALEY DO Feb 18, 2020 14:32
--- NOTE | 2020-02-18 14:37 | Anesthesia-General Post-Op ---
General Patient Condition Mental Status/LOC: Same as Preop Cardiovascular: Satisfactory Nausea/Vomiting: Absent Respiratory: Satisfactory Pain: Controlled Complications: Absent Post Op Complications Complications None Follow Up Care/Instructions Patient Instructions None needed. Anesthesia/Patient Condition Patient Condition Patient is doing well, no complaints, stable vital signs, no apparent adverse anesthesia problems. No complications reported per nursing. RAGHU DE LA CRUZ CRNA Feb 18, 2020 14:37
[2020-02-18] MEDS ORDERED: HYDROmorphone 2 MG/ML VIAL (DILAUDID) IV ONE (14:45)
[2020-02-18] MEDS ORDERED: morphine INJ 10 MG/ML 1ML (SYR OR VIAL) IVP ONE (14:45)
[2020-02-18] MEDS ORDERED: ONDANSETRON 4 MG/2 ML (SDV) Z0FRAN IVP PRN (14:45)
[2020-02-18] MEDS ORDERED: MEPERIDINE (DEMEROL) INJ 50 MG/ML IVP ONE (14:45)
== END 2020-02-18 16:50 | disposition home or self-care (01) ==
LOC: EDUNIT# 09:09 → ER 09:12 → SDC 13:03
PROVIDERS: ATTEND Surgery
DX: K35.80 Unspecified acute appendicitis (principal); Z98.51 Tubal ligation status; Z87.891 Personal history of nicotine dependence
CPT/HCPCS: 36415; 74177; 80053; 81000; 82150; 83690; 84703; 85007; 85027; 88304; 94664

== ENCOUNTER → 2020-03-04 | Outpatient (CLI) | payer MEDICAID ==
[~2020-03-04] MED LIST changes: +GADOBUTROL 10 MMOL/10 ML (GADAVIST) VIAL IV ONE; +HYDR-4226 PO
--- NOTE | 2020-03-04 10:25 | Diagnostic Imaging Report ---
EXAM: MRI of the brain and orbits INDICATION: Disorder of the eyes Multiplanar images utilized with T1 and T2-weighted sequences were obtained. Magnified images of the orbits were also performed in the coronal, sagittal and axial planes both before and after administration of intravenous contrast. COMPARISON: There are no prior studies available for comparison. The globes appear symmetrical and within normal limits. The optic nerves and extraocular muscles are generally unremarkable. There is no abnormal enhancement of the globes, the extraocular muscles or the optic nerves on the postcontrast series. The lacrimal glands are also felt to be within normal limits. The optic chiasm is undisturbed. The infundibulum is midline and the pituitary gland does not seem to be enlarged. The expected carotid flow voids on each side of the sella are evident and unremarkable. There is no intracranial mass, shift to the midline or hemorrhage to indicate an acute abnormality. There is no abnormal signal arising from the brain on the diffusion series to indicate an area of acute ischemia either. Furthermore, there is no signal abnormality arising from the periventricular white matter on the FLAIR series to suggest demyelinating disease. The postcontrast images are unremarkable for any abnormal enhancement that would suggest a neoplastic or an infectious process. The sinuses are generally clear aside from a 15 mm retention cyst in the right maxillary antrum. The 7th and 8th nerve complexes are unremarkable. IMPRESSION: 1. There is no evidence for an acute intracranial abnormality. 2. The orbits, extraocular muscles and optic nerves appear symmetrical and appear to be within normal limits. 3. There is no abnormal enhancement to indicate a neoplastic or an infectious process. 4. There is a retention cyst in the floor of the right maxillary antrum. Dictated by: Dictated on workstation # [id number]
== END ==
LOC: RAD 08:00
PROVIDERS: ATTEND Optometrist
DX: J34.1 Cyst and mucocele of nose and nasal sinus (principal); H47.10 Unspecified papilledema
CPT/HCPCS: 70553

== ENCOUNTER 2022-10-09 10:02 | Emergency (ER) | payer MEDICAID ==
[~2022-10-09] VITALS: Ht 162 cm; Wt 84.0 kg
[~2022-10-09 10:02] MED LIST changes: -GADOBUTROL 10 MMOL/10 ML (GADAVIST) VIAL IV ONE
[2022-10-09] MEDS ORDERED: cefTRIAXone IV/IM 1,000 MG in NS (IVPB) 50 ML IV ONE (10:30)
--- NOTE | 2022-10-09 10:32 | ED EENT ---
History of Present Illness General Chief Complaint: Oral/Throat Problems Stated Complaint: ABCESS IN THROAT | THROAT PAIN Nursing Triage Note: PT AMB TO TRIAGE, PT CO OF FEVER, SORE THROAT, DIFF EATING AND DRINKING STARTED ON SUNDAY, STATES FEVERS STARTED LAST SUNDAY. PT WAS SEEN AT [facility] AND TESTED + FOR STREP THIS AM. PT WAS SENT TO ED FOR POSSIBLE THROAT ABCESS Source: patient Exam Limitations: no limitations History of Present Illness Date Seen by Provider: October 09, 2022 Time Seen by Provider: 10:14 Initial Comments 26-year-old female presents to the emergency department today for sore throat. Symptoms started last Sunday and have been persistent. She went to the [facility] in this morning and tested positive for strep. She was sent here because they were concerned she had a peritonsillar abscess. She has had fevers at the onset of her symptoms but these have abated more recently. She has not been on antibiotics. She is having difficulty opening her mouth secondary to pain. She is swallowing liquids and foods with significant pain but is not having any difficulty with food or liquid getting stuck. She is tolerating secretions. All other systems reviewed and negative except documented per HPI. Voice recognition software was used to help create this chart Allergies and Home Medications Allergies Coded Allergies: No Known Drug Allergies (Unverified , 12/17/16) Patient Home Medication List Home Medication List Reviewed: Yes Clindamycin HCl (Clindamycin HCl) 150 Mg Capsule, 300 MG PO TID Prescribed by: ADRIÁN HOOVER MD on 10/09/22 1132 Ferrous Sulfate (Ferrous Sulfate) 325 Mg Tablet, 325 MG PO DAILY@0800 Prescribed by: MARLEY PIERRE on 12/19/16 0653 Hydrocodone/Acetaminophen (Hydrocodone/Acetaminophen 5 MG/325 MG TAB) 1 Each Tablet, 1 TAB PO Q6H Prescribed by: CEDRIC DALEY on 02/18/20 1431 Ibuprofen (Ibuprofen) 600 Mg Tablet, 600 MG PO Q6H PRN for PAIN-MILD TO MODERATE Prescribed by: MARLEY PIERRE on 12/19/16 0653 Pnv with Ca,No.72/Iron/FA (Pnv Plus Multivit Tab) 1 Each Tablet, 1 EA PO DAILY@0700 Prescribed by: MARLEY PIERRE on 12/19/16 0653 Review of Systems Review of Systems Constitutional: see HPI Past Iavhvaz-Hrztkn-Njcykp Hx Patient Social History Tobacco Use?: Yes Tobacco type used: Cigarettes Smoking Status: Current Everyday Smoker Smokeless Tobacco Frequency: Current Someday User Substance use?: No Alcohol Use?: Yes Alcohol type: Beer Alcohol Frequency: Once in a while Pt feels they are or have been: No Immunizations Up To Date Tetanus Booster (TDap): Unknown Influenza Vaccine Up-to-Date: Yes; Up-to-Date Seasonal Allergies Seasonal Allergies: No Past Medical History Surgery/Hospitalization HX: PSEUDO TUMOR CERIBRI. APPY, TUBAL, Surgeries: Yes Tubal Ligation Respiratory: No Currently Using CPAP: No Currently Using BIPAP: No Cardiac: No Neurological: No Sexually Transmitted Disease: No HIV/AIDS: No Genitourinary: No Gastrointestinal: No Musculoskeletal: No Endocrine: No HEENT: No Cancer: No Psychosocial: No Integumentary: No Blood Disorders: No Adverse Reaction/Blood Tranf: No Family Medical History Patient reports no known family medical history. Cancer, Other Conditions/Hx Physical Exam Vital Signs Vital Signs - First Documented 10/09/22 10:10 Temp 37.0 Pulse 79 Resp 18 B/P (MAP) 126/81 (96) Pulse Ox 100 Height, Weight, BMI Height: 5'4.00" Weight: 157lbs. 10.0oz. 71.630757do; 32.00 BMI Method: General Appearance: WD/WN, no apparent distress, other (Voice is normal) Eyes: bilateral eye normal inspection, bilateral eye PERRL, bilateral eye EOMI Ears: bilateral ear auricle normal, bilateral ear canal normal, bilateral ear TM normal Nose: normal inspection Mouth/Throat: other (Tonsils are equally enlarged with purulent exudate. Uvula is midline. There is some trismus.) Neck: lymphadenopathy (R), lymphadenopathy (L) Cardiovascular: regular rate, rhythm, no murmur Respiratory: chest non-tender, lungs clear, normal breath sounds, no respiratory distress, no accessory muscle use Gastrointestinal: non tender, soft Neurologic/Psychiatric: alert, normal mood/affect, oriented x 3 Skin: normal color, warm/dry Progress/Results/Core Measures Results/Orders My Orders Orders - ADRIÁN HOOVER DO Ct Neck (Soft Tissue) W (10/09/22 10:27) Dexamethasone Injection (Decadron Injec (10/09/22 10:30) Ceftriaxone Iv/Im (Rocephin Iv/Im) (10/09/22 10:30) Iohexol Injection (Omnipaque 350 Mg/Ml 1 (10/09/22 10:45) Received Contrast (Hold Metformin- Contr (10/09/22 10:45) Ns (Ivpb) (Sodium Chloride 0.9% Ivpb Bag (10/09/22 10:45) Medications Given in ED Current Medications Medications Dose Ordered Sig/Chase Route Start Time Stop Time Status Last Admin Dose Admin Ceftriaxone Sodium 1000 mg/ Sodium Chloride 50 ml @ 100 mls/hr ONCE ONCE IV 10/09/22 10:30 10/09/22 10:59 DC 10/09/22 10:50 100 MLS/HR Dexamethasone Sodium Phosphate 6 mg ONCE ONCE IV 10/09/22 10:30 10/09/22 10:31 DC 10/09/22 10:49 6 MG Iohexol 75 ml ONCE ONCE IV 10/09/22 10:45 10/09/22 10:46 DC 10/09/22 10:45 75 ML Sodium Chloride 100 ml ONCE ONCE IV 10/09/22 10:45 10/09/22 10:46 DC 10/09/22 10:45 80 ML Vital Signs/I&O 10/09/22 10:10 Temp 37.0 Pulse 79 Resp 18 B/P (MAP) 126/81 (96) Pulse Ox 100 Blood Pressure Mean: 96 Departure Communication (Admissions) Patient is hemodynamically stable. Tonsils are equally enlarged and uvula is midline. She has some trismus but no submandibular pain or swelling. No difficulty with her secretions. CT scan shows phlegmon, no drainable abscess. Treatment for now will be conservative with antibiotics. She is given IV antibiotics here as well as IV Decadron. She is discharged with p.o. antibiotics and close follow-up. Impression Primary Impression: Streptococcal tonsillitis Disposition: 01 HOME, SELF-CARE Condition: Stable Departure-Patient Inst. Referrals: [facility] (PCP/Family) Primary Care Physician Patient Instructions: Strep Throat (DC) Add. Discharge Instructions: Take the antibiotics as prescribed until they are gone. Do not stop taking them simply because you are feeling better. Use salt water gargles. Alternate Motrin and Tylenol for pain. Return to the emergency department immediately if you food or liquid is getting stuck, if you are unable to swallow your spit or if your symptoms change in any way concerning. Your symptoms should improve dramatically over the next 24 to 48 hours. Follow-up with your primary doctor in the next 48 hours for reevaluation. All discharge instructions reviewed with patient and/or family. Voiced understanding. Scripts Clindamycin HCl (Clindamycin HCl) 150 Mg Capsule 300 MG PO TID for 10 Days, #60 CAP Prov: ADRIÁN HOOVER DO 10/09/22 ADRIÁN HOOVER DO October 09, 2022 10:32
[2022-10-09] MEDS ORDERED: NS 100 ML (IVPB) BAG IV ONE (10:45)
[2022-10-09] MEDS ORDERED: IOHEXOL 350 MG/ML 100 ML (OMNIPAQUE 350) VIAL IV ONE (10:45)
[2022-10-09] MEDS ORDERED: HOLD METFORMIN - RECEIVED CONTRAST 20 ML VIAL IV SCH (10:45)
--- NOTE | 2022-10-09 11:18 | Diagnostic Imaging Report ---
CLINICAL INDICATION: Patient with tonsillar swelling and trismus, left pain and ear pain. EXAM: Axial CT scan of the neck soft tissue performed with 75 mL of Omnipaque 350 IV contrast. Auto Exposure Controls were utilized during the CT exam to meet ALARA standards for radiation dose reduction. COMPARISON: None. FINDINGS: There is enlargement of the bilateral palatine tonsils with the left side more than the right. There is heterogeneous enhancement involving the bilateral palatine region. There is a roughly 8 mm area of low density involving the left peritonsillar region, which may represent phlegmon or very early abscess. There is no drainable fluid collection seen. There is cervical lymphadenopathy seen, most pronounced in the level II regions and bilateral submandibular regions. The largest lymph node is in the left level II-A region measuring 1.7 cm x 1.2 cm. There is also a prominent lymph node in left level I-B submandibular region measuring 1.6 cm x 1.1 cm. The visualized portions of the oral cavity, tongue, sublingual and submandibular regions show no other significant abnormality. There is enlargement of the posterior nasopharyngeal adenoid soft tissue and posterior lingual adenoid soft tissue, likely reactive. There are low-density thyroid nodules involving the right and left thyroid lobes. The largest one measures 4 mm in the left thyroid lobe region. The salivary glands are unremarkable. The visualized upper lung marin are clear. Limited visualization of the intracranial structures are unremarkable. Orbits and globes are unremarkable. There is a small mucus retention cyst involving the right maxillary sinus. Mastoid air cells are clear. Cervical spine is unremarkable. There is note of an impacted incisor tooth in the right maxillary region anteriorly. IMPRESSION: 1: There is bilateral palatine tonsillitis which demonstrates heterogeneous enhancement. There is an 8 mm area of low density involving the left palatine tonsil region, which may represent phlegmon versus very early abscess. 2: There is enlargement of the posterior nasopharyngeal adenoid soft tissue and lingual tonsils, likely reactive. 3: There is cervical and submandibular lymphadenopathy, likely reactive. Dictated by: Dictated on workstation # [id number]
[2022-10-09] MEDS ORDERED: CLIN150C20 PO ×2 (11:32→11:37)
[2022-10-09 11:41] VITALS: BP 103/69
== END 2022-10-09 11:41 | disposition home or self-care (01) ==
LOC: EDUNIT# 10:02 → ER 10:04
DX: J03.00 Acute streptococcal tonsillitis, unspecified (principal); F17.210 Nicotine dependence, cigarettes, uncomplicated
CPT/HCPCS: 70491; 99283